=== PATIENT | male | born 2000 | race Two or more races ===

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

== ENCOUNTER 2021-11-02 17:16 | Emergency (ER) | payer SELFPAY ==
[2021-11-02] MEDS ORDERED: Ondansetron 4 MG/2 ML SDV IVPUSH ONE (18:11)
[2021-11-02] MEDS ORDERED: Sodium Chloride 0.9% 1,000 ML IV ONE (18:11)
[2021-11-02 18:54] LABS: BLOOD UREA NITROGEN,BUN 15 mg/dL (7.0-18.0); CARBON DIOXIDE,CO2 22.7 mmol/L (21.0-32.0); CHLORIDE,CL 103 mmol/L (98-107); GLUCOSE RANDOM 93 mg/dL (74-106); LIPASE 56 U/L (73-393); POTASSIUM,K 3.7 mmol/L (3.5-5.1); SODIUM,NA 138 mmol/L (136-148)
[2021-11-02 18:55] LABS: ESTIMATED GFR 111 mL/min (>60)
[2021-11-02] MEDS ORDERED: Iopamidol 755 MG/ML 500 ML Multipack Bottle IVPUSH STA (19:45)
[2021-11-02] MEDS ORDERED: Promethazine 25 MG/ML SDV IM ONE (20:45)
== END 2021-11-02 21:45 | disposition home or self-care (01) ==
LOC: MW.ED 17:16
DX: R10.11 Right upper quadrant pain (principal); Z20.822 Contact with and (suspected) exposure to COVID-19
CPT/HCPCS: 36415; 74177; 80053; 81003; 83690; 85025; 87635; 96361; 96372; 96374; 99284; J2405; J2550; J7030; Q9967; U0002

== ENCOUNTER 2021-11-04 14:01 | Emergency (ER) | payer SELFPAY ==
[2021-11-04] MEDS ORDERED: Sodium Chloride 0.9% 1,000 ML IV ONE (15:52)
[2021-11-04] MEDS ORDERED: Ondansetron 4 MG/2 ML SDV IVPUSH ONE (15:52)
[2021-11-04] MEDS ORDERED: Pantoprazole 80 MG in Sodium Chloride 0.9% 10 ML IVPUSH ONE (15:53)
[2021-11-04] MEDS ORDERED: Morphine 4 MG/ML VIAL IVPUSH ONE (15:53)
[2021-11-04] MEDS ORDERED: Haloperidol Lactate 5 MG/ML SDV IM ONE (15:55)
[2021-11-04 16:41] LABS: CARBON DIOXIDE,CO2 19.8 mmol/L (21.0-32.0); POTASSIUM,K 3.6 mmol/L (3.5-5.1)
== END 2021-11-04 18:31 | disposition home or self-care (01) ==
LOC: MW.ED 14:01
DX: R11.2 Nausea with vomiting, unspecified (principal); R10.9 Unspecified abdominal pain; R19.7 Diarrhea, unspecified
CPT/HCPCS: 36415; 80053; 83690; 85025; 96361; 96372; 96374; 99284; C9113; J1630; J3490; J7030

== ENCOUNTER 2021-12-05 16:07 | Emergency (ER) | payer SELFPAY ==
[2021-12-05] MEDS ORDERED: Lidocaine 1% 5 ML VIAL INJECT ONE (16:13)
== END 2021-12-05 17:28 | disposition home or self-care (01) ==
LOC: MW.ED 16:07
DX: L05.91 Pilonidal cyst without abscess (principal); Z79.899 Other long term (current) drug therapy
CPT/HCPCS: 99282; 99283

== ENCOUNTER 2023-08-29 10:24 | Emergency (ER) | payer BC ==
[2023-08-29] MEDS: Ondansetron 4 MG/2 ML SDV IVPUSH STA (10:39)
[2023-08-29] MEDS: Ketorolac 30 MG/ML SDV IVPUSH STA (10:39)
[2023-08-29] MEDS: Sodium Chloride 0.9% 1,000 ML IV STA ×2 (10:39→11:38)
[2023-08-29 10:56] LABS: BASOPHILS ABSOLUTE AUTO 0.05 K/uL (0.00-0.20); BASOPHILS PERCENT AUTO 0.2 % (0.0-1.0); EOSINOPHILS ABSOLUTE AUTO 0.01 K/uL (0.00-0.45); HEMATOCRIT 41.7 % (42.0-52.0); HEMOGLOBIN 14.4 g/dL (14.0-18.0); IMMATURE GRAN ABSOLUTE AUTO 0.16 K/uL (0.00-0.05); IMMATURE GRAN PERCENT AUTO 0.7 % (0.0-0.4); LYMPHOCYTES ABSOLUTE AUTO 1.45 K/uL (1.00-4.80); LYMPHOCYTES PERCENT AUTO 6.8 % (24.0-44.0); MEAN CORPUSCULAR HEMOGLOBIN 29.6 pg (28.0-32.0); MEAN CORPUSCULAR HGB CONC 34.5 g/dL (32.0-36.0); MEAN CORPUSCULAR VOLUME 85.8 fL (83.0-99.0); MEAN PLATELET VOLUME 10.7 fL (9.4-12.4); MONOCYTES ABSOLUTE AUTO 0.55 K/uL (0.00-0.80); MONOCYTES PERCENT AUTO 2.6 % (0.0-8.0); NEUTROPHILS ABSOLUTE AUTO 19.17 K/uL (1.80-7.70); NEUTROPHILS PERCENT AUTO 89.7 % (41.0-71.0); PLATELET COUNT,PLT 347 K/uL (150-400); RED BLOOD CELL COUNT 4.86 M/uL (4.52-5.90); WHITE BLOOD CELL COUNT,WBC 21.39 K/uL (3.9-11.3)
[2023-08-29 11:12] LABS: A/G RATIO 1.2 (0.9-1.6); ALBUMIN 4.2 g/dL (3.4-5.0); BILIRUBIN TOTAL 0.4 mg/dL (0.2-1.0); CALCIUM 9.6 mg/dL (8.5-10.1); CARBON DIOXIDE,CO2 20.6 mmol/L (21.0-32.0); CREATININE 1.1 mg/dL (0.8-1.3); EST CRCL DRUG DOSING (CG) 99.32 mL/min; POTASSIUM,K 4.1 mmol/L (3.5-5.1); PROTEIN TOTAL,TP 7.8 g/dL (6.4-8.2)
[2023-08-29] MEDS: Morphine 4 MG/ML Syringe IVPUSH STA (11:38)
[2023-08-29] MEDS: droPERidol 5 MG/2 ML SDV IVPUSH STA ×2 (11:38→13:00)
[2023-08-29] MEDS: HYDROmorphone 1 MG/ML Syringe IVPUSH STA (12:13)
== END 2023-08-29 13:34 | disposition home or self-care (01) ==
LOC: MW.ED 10:24
DX: A09 Infectious gastroenteritis and colitis, unspecified (principal); J45.909 Unspecified asthma, uncomplicated; Z79.899 Other long term (current) drug therapy; Z75.8 Other problems related to medical facilities and other health care
CPT/HCPCS: 36415; 74177; 80053; 83690; 83735; 85025; 96361; 96374; 96375; 96376; 99284; J1790; J1885; J2270; J2405; J7030

== ENCOUNTER 2023-12-05 16:24 | Emergency (ER) | payer BC ==
[2023-12-05] MEDS: Acetaminophen 500 MG Tab PO ONE (18:20)
[2023-12-05] MEDS: Ketorolac 30 MG/ML SDV IM ONE (18:21)
== END 2023-12-05 18:23 | disposition home or self-care (01) ==
LOC: MW.ED 16:24
DX: S60.221A Contusion of right hand, initial encounter (principal); J45.909 Unspecified asthma, uncomplicated; Z79.899 Other long term (current) drug therapy; W22.8XXA Striking against or struck by other objects, initial encounter
CPT/HCPCS: 73130; 96372; 99283; A9270; J1885

== ENCOUNTER 2024-05-15 08:20 | Emergency (ER) | payer BC ==
[2024-05-15 09:22] LABS: BASOPHILS ABSOLUTE AUTO 0.05 K/uL (0.00-0.20); BASOPHILS PERCENT AUTO 0.5 % (0.0-1.0); EOSINOPHILS ABSOLUTE AUTO 0.05 K/uL (0.00-0.45); EOSINOPHILS PERCENT AUTO 0.5 % (0.0-6.0); HEMATOCRIT 43.1 % (42.0-52.0); HEMOGLOBIN 14.7 g/dL (14.0-18.0); IMMATURE GRAN ABSOLUTE AUTO 0.05 K/uL (0.00-0.05); IMMATURE GRAN PERCENT AUTO 0.5 % (0.0-0.4); LYMPHOCYTES ABSOLUTE AUTO 1.62 K/uL (1.00-4.80); LYMPHOCYTES PERCENT AUTO 14.7 % (24.0-44.0); MEAN CORPUSCULAR HEMOGLOBIN 29.5 pg (28.0-32.0); MEAN CORPUSCULAR HGB CONC 34.1 g/dL (32.0-36.0); MEAN CORPUSCULAR VOLUME 86.4 fL (83.0-99.0); MEAN PLATELET VOLUME 10.1 fL (9.4-12.4); MONOCYTES ABSOLUTE AUTO 0.56 K/uL (0.00-0.80); MONOCYTES PERCENT AUTO 5.1 % (0.0-8.0); NEUTROPHILS ABSOLUTE AUTO 8.71 K/uL (1.80-7.70); NEUTROPHILS PERCENT AUTO 78.7 % (41.0-71.0); PLATELET COUNT,PLT 296 K/uL (150-400); RED BLOOD CELL COUNT 4.99 M/uL (4.52-5.90); WHITE BLOOD CELL COUNT,WBC 11.04 K/uL (3.9-11.3)
[2024-05-15] MEDS: Pantoprazole 40 MG in Sodium Chloride 0.9% 10 ML IVPUSH ONE (09:24)
[2024-05-15] MEDS: Sodium Chloride 0.9% 10 ML Syringe FLUSH PRN (09:25)
[2024-05-15] MEDS: Alum Hydrox/Mag Hydrox/Simeth 15 ML, Lidocaine 2% 5 ML PO ONE (09:25)
[2024-05-15 09:47] LABS: ALBUMIN 4.3 g/dL (3.4-5.0); BILIRUBIN TOTAL 1.1 mg/dL (0.2-1.0); CALCIUM 9.7 mg/dL (8.5-10.1); CARBON DIOXIDE,CO2 25.7 mmol/L (21.0-32.0); EST CRCL DRUG DOSING (CG) 104.56 mL/min; MAGNESIUM 1.9 mg/dL (1.8-2.4); POTASSIUM,K 3.6 mmol/L (3.5-5.1); PROTEIN TOTAL,TP 8.5 g/dL (6.4-8.2)
== END 2024-05-15 10:37 | disposition home or self-care (01) ==
LOC: MW.ED 08:20
DX: K29.71 Gastritis, unspecified, with bleeding (principal); J45.909 Unspecified asthma, uncomplicated; Z79.51 Long term (current) use of inhaled steroids; Z79.899 Other long term (current) drug therapy
CPT/HCPCS: 36415; 80053; 83690; 83735; 85025; 96374; 99284; A9270; J2470; 99283